=== PATIENT | male | born 1935 | race Caucasian/White ===

== ENCOUNTER 2016-04-01 00:51 | Observation (INO) ==
[2016-04-01 01:30] LABS: BASOPHILS # (AUTO) 0.1 K/uL (0-0.2); BASOPHILS % (AUTO) 1.1 % (0.0-3.0); EOSINOPHILS # (AUTO) 0.3 K/ul (0.0-0.7); EOSINOPHILS % (AUTO) 3.4 % (0.0-7.0); HEMATOCRIT 43.2 % (42.0-52.0); HEMOGLOBIN 14.7 g/dl (14.0-18.0); IMMATURE GRANULOCYTE % (AUTO) 0.6 % (0.0-5.0); LYMPHOCYTES # (AUTO) 1.4 K/uL (0.60-3.4); LYMPHOCYTES % (AUTO) 19.7 (10.0-50.0); MEAN CORPUSCULAR HEMOGLOBIN 29.8 pg (27.0-31.0); MEAN CORPUSCULAR VOLUME 87.4 fl (80.0-94.0); MONOCYTES # (AUTO) 0.8 K/uL (0.4-2.0); MONOCYTES % (AUTO) 10.3 (0-10); NEUTROPHILS # (AUTO) 4.7 K/ul (2.0-6.9); NEUTROPHILS % (AUTO) 64.9; PLATELET COUNT 245 10^3/uL (140-440); RED BLOOD COUNT 4.94 10^6/ul (4.70-6.10); WHITE BLOOD COUNT 7.27 K/ul (4.2-10.2)
[2016-04-01 01:35] LABS: ALBUMIN/GLOBULIN RATIO 1.29; ANION GAP 13.8; BILIRUBIN,TOTAL 0.49 mg/dL (0.00-1.20); BUN/CREATININE RATIO 19.44; CALCIUM 9.3 mg/dL (8.2-10.2); CREATININE 1.08 mg/dL (0.60-1.10); POTASSIUM 3.8 mmol/L (3.5-5.1); TOTAL PROTEIN 7.1 g/dL (5.8-8.1)
[2016-04-01 02:11] LABS: TROPONIN I 0.046 ng/ml (0.0000-0.4000)
[2016-04-01 02:58] LABS: ADD URINE MICROSCOPIC NO; BILIRUBIN,URINE Negative (NEGATIVE); KETONES,URINE Negative (NEGATIVE); LEUKOCYTE ESTERASE ,URINE Negative (NEGATIVE); NITRITE,URINE Negative (NEGATIVE); PROTEIN,URINE Negative (NEGATIVE); URINE, BLOOD Negative (NEGATIVE)
--- NOTE | 2016-04-01 03:55 | CT ---
Exam: CT angiography of the chest History: Chest pain and shortness of breath Technique: [address] of the chest utilizing CT angiography protocol. Multiplanar and th ree-dimensional reformations were performed. FINDINGS: Technically adequate for evaluation of pulmonary arteries and aorta. There are no pulmon luís artery filling defects. The lung windows show no significant pulmonary parenchymal abnormality. Atherosclerotic calcification of the aorta and coronary arteries. Mediastinal lymph nodes are abu ndant and sub pathologic by size. No acute findings of the chest wall soft tissues or bony thorax. No acute findings of the upper abdomen. Impression: 1. No evidence of pulmonary artery thrombus. No acute findings of the chest 2. Nonspecific mediastinal lymph node abundance
--- NOTE | 2016-04-01 05:27 | ED.PDOC ---
General ED Provider: Dr. TRAVIS KIDD-ER Chief Complaint: Non-specific Complaint Stated Complaint: i think i took the wrong meds and i had chest pain Time Seen by Physician: 00:55 Mode of Arrival: Walk-In Information Source: Patient, Family Exam Limitations: No limitations Primary Care Provider: ENRIQUE LIND Nursing and Triage Documentation Reviewed and Agree: Yes Miscellaneous Complaint Exam - Complex/Multi-System Complaint/Exam Onset/Duration: tonight Symptoms Are: Still present Initial Severity: Mild Current Severity: Mild Associated Signs and Symptoms: Reports: Weakness. Denies: Decreased responsiveness, Confusion, Agitation, Dizziness, Syncope, Headache, Short of air , Cough, Wheezing, Hemoptysis, Chest pain, Palpitations, Edema, Nausea, Vomiting , Diarrhea, Abdominal pain, Back pain, Dysuria, Hematemesis, Melena, Decreased oral intake, Fever, Diaphoresis, Immunocompromised, Anticoagulation Therapy, Recent medication changes, Indwelling medical clinic manager, Prior MRSA, Prior VRE, Recent trauma, Remote trauma Recent Echo/LV Function: No Respiratory Distress: None JVD Present: No Tachypnea Present: No Stridor Present: No Abdominal Findings: Present: Normal findings Glascow Coma Scale (see protocol): 15 Meningeal Signs Positive: No Focal Weakness: Present: None Focal Sensory Loss: Present: None Gait: Normal Gag Reflex Present: No Babinski Sign: Negative Right, Negative Left Skin Findings: Present: Normal findings Joint Swelling Present: No In-Dwelling Device Present: No Differential Diagnosis: Metabolic Abnormality, UTI Quality Indicator For Non-Traumatic Chest Pain/Syncope: EKG Performed Review of Systems - Review Of Systems Constitutional: Reports: No symptoms Eyes: Reports: No symptoms Ears, Nose, Mouth, Throat: Reports: No symptoms Respiratory: Reports: No symptoms Cardiac: Reports: Chest pain GI: Reports: No symptoms : Reports: No symptoms Musculoskeletal: Reports: No symptoms Skin: Reports: No symptoms Neurological: Reports: No symptoms Endocrine: Reports: No symptoms Hematologic/Lymphatic: Reports: No symptoms All Other Systems: Reviewed and Negative Past Medical History - Past Medical History Endocrine: Reports: Dyslipidemia Cardiovascular: Reports: CAD, Hypertension Respiratory: Reports: None Hematological: Reports: None Gastrointestinal: Reports: None Genitourinary: Reports: None Neuro/Psych: Reports: None Musculoskeletal: Reports: None Cancer: Reports: None - Surgical History General Surgical History: Reports: Unknown - Family History Family History: Reports: Unknown - Social History Smoking Status: Never smoker Hx Substance Use: No Alcohol Screening: None Lives: With family - Immunizations Tetanus Shot up to Date: Yes (unsure) Physical Exam - Physical Exam Appearance: Well-appearing, No pain distress, Well-nourished Eyes: MADDISON, EOMI, Conjunctiva clear ENT: Ears normal, Nose normal, Oropharynx normal Neck: Supple Respiratory: Airway patent, Breath sounds clear, Breath sounds equal, Respirations nonlabored Cardiovascular: RRR, Pulses normal, No rub, No murmur GI/: Soft Musculoskeletal: Normal strength Skin: Warm, Dry, Normal color Neurological: Sensation intact, Motor intact, Reflexes intact, Cranial nerves intact, Alert, Oriented Psychiatric: Affect appropriate Interpretation - Radiology Interpretation Radiology Interpretation By: Radiologist Radiology Results: Negative Exam Interpreted: CT Scan - EKG Interpretation Time of EKG #1: 02:00 Rate: Lukas Rhythm: Sinus Ectopy: None [place]: NL ST Segment: Normal Re-Evaluation - Re-Evaluation Time of Re-Evaluation: 05:40 Status: Unchanged Vital Signs Stable: Yes Pain Level: 0 Appearance: NAD Lungs: Clear Skin: Warm and Dry Neuro: Alert and Oriented X3 CV: RRR Critical Care Note - Critical Care Note Total Time (mins): 0 Course - Course Hematology/Chemistry: 04/01/16 01:14 04/01/16 01:14 Orders, Labs, Meds: Lab Review 04/01/16 04/01/16 04/01/16 01:10 01:14 02:58 WBC 7.27 RBC 4.94 Hgb 14.7 Hct 43.2 MCV 87.4 MCH 29.8 MCHC 34.0 RDW Coeff of [place] 13.7 Plt Count 245 Immature Gran % (Auto) 0.6 Neut % (Auto) 64.9 Lymph % (Auto) 19.7 [place] % (Auto) 10.3 H Eos % (Auto) 3.4 Baso % (Auto) 1.1 Immature Gran # (Auto) 0.0 Neut # 4.7 Lymph # 1.4 [place] # 0.8 Eos # 0.3 Baso # 0.1 D-Dimer 740.09 H Sodium 137 Potassium 3.8 Chloride 99 Carbon Dioxide 28 Anion Gap 13.8 BUN 21 H Creatinine 1.08 Estimated GFR (MDRD) 66.00 BUN/Creatinine Ratio 19.44 Glucose 171 H Calcium 9.3 Total Bilirubin 0.49 AST 24 ALT 18 Alkaline Phosphatase 103 Total Creatine Kinase 69 Troponin I 0.0460 Total Protein 7.1 Albumin 4.0 Globulin 3.1 Albumin/Globulin Ratio 1.29 Urine Color Yellow Urine Clarity Clear Urine pH 7.0 Ur Specific [place] 1.015 Urine Protein Negative Urine Glucose (UA) Negative Urine Ketones Negative Urine Blood Negative Urine Nitrite Negative Urine Bilirubin Negative Urine Urobilinogen 0.2 Ur Leukocyte Esterase Negative Orders Category Date Time Status EKG-(ED ONLY) Stat CARDIO 04/01/16 01:46 Completed NPO REMINDER: IMAGING ONCE CARE 04/01/16 02:31 Completed ACCUCHECK (ED) [ED ACCUCHECK ASSESSMENT] Q1HR EMERGENCY 04/01/16 01:48 Active Slab Tripper [ED FOREIGN BROADCAST SPECIALIST APPLIED] .ONCE EMERGENCY 04/01/16 01:48 Active CBC W/ AUTO DIFF Stat LAB 04/01/16 01:14 Completed CMP [COMPREHENSIVE METABOLIC PANEL] Stat LAB 04/01/16 01:14 Completed CREATINE KINASE Stat LAB 04/01/16 01:10 Completed D-DIMER Stat LAB 04/01/16 01:10 Completed TROPONIN I Stat LAB 04/01/16 01:10 Completed URINALYSIS C & S IF INDICATED Stat LAB 04/01/16 02:[address] CHEST PE PROTOCOL Stat RADS 04/01/16 02:30 Completed Vital Signs: Temp Pulse Resp BP Pulse Ox 04/01/16 04:22 62 18 127/82 96 04/01/16 00:52 96.8 F L 64 22 166/82 H 96 Departure - Departure Time of Disposition: 05:40 Disposition: PLACED OBSERVATION Discharge Problem: Chest pain Qualifiers: Chest pain type: unspecified Qualifier Code: (R07.9) Chest pain, unspecified Instructions: Chest Pain (ED) Condition: Good Pt referred to PMD for follow-up: Yes Allergies/Adverse Reactions: Allergies Penicillins Adverse Reaction (Verified 04/01/16 01:07) Hives Home Medications: Ambulatory Orders Aspirin [Lo-Dose Aspirin EC] 81 mg PO DAILY 04/01/16 Atorvastatin Calcium [Lipitor] 40 mg PO DAILY 04/01/16 Clonidine HCl 0.1 mg PO BID 04/01/16 Glipizide 5 mg PO BID 04/01/16 Losartan Potassium [Cozaar] 25 mg PO BID 04/01/16 Metoprolol Succinate 50 mg PO BID 04/01/16 Multivitamin/Iron/Folic Acid [Centrum Complete Multivit Tab] 1 tab PO DAILY 12/08 Nifedipine [Nifedical Xl] 60 mg PO DAILY 04/01/16 Trazodone HCl 50 mg PO BEDTIME 04/01/16 Disposition Discussed With: Patient, Family
[2016-04-01] MEDS ORDERED: GLIPIZIDE 5 MG PO SCH (09:00)
[2016-04-01] MEDS ORDERED: NON-FORMULARY MEDICATION (Clonidine Hcl [Clonidine Hcl] 0.1 MG) PO SCH (09:00)
[2016-04-01] MEDS ORDERED: NIFEDIPINE 60 MG PO SCH ×42 (09:00→21:00)
[2016-04-01 12:03] VITALS: BMI 29.0
[2016-04-01 12:15] LABS: CREATINE KINASE 53 U/L
[2016-04-01] MEDS ORDERED: GLIPIZIDE 2.5 MG PO SCH (13:00)
[2016-04-01] MEDS ORDERED: CLONIDINE HCL 0.15 MG PO SCH (13:05)
--- NOTE | 2016-04-01 14:35 | HP ---
DATE OF SERVICE: 04/01/16 CHIEF COMPLAINT/HISTORY OF PRESENT ILLNESS: This 80 year old WHITE/ M was hospitalized 04/01/16. The patient was admitted with chest pain. His on Friday. He states when he went to bed he had a pressure feeling in his chest and got up and took some baking soda. He states he sometimes feels this way when his sugar is low. He states he has had stents put in the past. He follows for his heart now with Dr. Ward in [place]. The patient is anxious to go home as he has family that is coming in. REVIEW OF SYSTEMS: CONSTITUTIONAL: No fever, no chills. HEENT: Normal. ENDOCRINE: No weight gain; no weight loss. CVS: No chest pain. No PND, no orthopnea. No shortness of breath. RESPIRATORY: No cough, no congestion. No hemoptysis. GI: No nausea, no vomiting. No abdominal pain. No melena. : No hematuria. No polyuria. MUSCULOSKELETAL: No joint swelling. PSYCHIATRIC: Not anxious. No depression. No suicidal thoughts. No homicidal thoughts. SKIN: Intact, no open lesions. PAST MEDICAL HISTORY: 1. Coronary artery disease status post stent placement times three. 2. Diabetes mellitus. 3. Hypertension 4. Dyslipidemia PAST SURGICAL HISTORY: 1. Knee surgery, right 2. Stent placement x3 PERSONAL HISTORY: recently. Nonsmoker. Occasional drinker. 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 MEDICATIONS: (Home) 1. Clonidine 1.5 mg p.o. b.i.d. 2. Nifedipine 60 mg p.o. bedtime 3. Glipizide 2.5 mg p.o. b.i.d. 4. Metoprolol 50 mg p.o. b.i.d. 5. Aspirin 81 mg p.o. daily 6. Multivitamin one tab p.o. daily 7. Atorvastatin (Lipitor) 40 mg p.o. daily 8. Losartan (Cozaar) 25 mg p.o. b.i.d. 9. Trazodone 25 mg p.o. bedtime 10. Hydrochlorothiazide 25 mg p.o. daily 11. Pantoprazole 40 mg p.o. b.i.d. ALLERGIES: PENICILLIN PHYSICAL EXAMINATION: V/S: Temperature 96.8, pulse 62, respirations 18, BP 127/82, pulse ox 96%. Weight 210; height 5'11". GENERAL: Sitting in chair in no distress. HEENT: Atraumatic, normocephalic. No scleral icterus. No pallor. NECK: Supple. No JVD, no bruit. No lymphadenopathy. No thyromegaly. HEART: S1, S2 normal. No murmur. No cyanosis or clubbing. No ascites. LUNGS: Clear to auscultation. No rales or rhonchi. ABDOMEN: Soft, nontender. Bowel sounds are active. No CVA tenderness. No rigidity or guarding. EXTREMITIES: No cyanosis, clubbing or pedal edema. MUSCULOSKELETAL: Normal joints, no swelling. NEUROLOGIC: The patient is awake, alert, oriented times three. SKIN: Intact; no open lesions. LYMPHATIC: No lymph nodes palpable. ASSESSMENT: 1. Chest pain, rule out ACS 2. Anxiety/grief 3. Diabetes mellitus 4. Coronary artery disease 5. Hypertension 6. Dyslipidemia PLAN: 1. Echocardiogram 2. A1C 3. TSH 4. Lipids 5. Accu-Cheks with coverage 6. Diabetic diet SCRIBED BY: NEMO TY, Specialty Plant Supervisor scribed while in presence of service performed by Dr. YUN ALDRICH on 04/01/16 ([id number]) [facility] CENTERGurinder
[2016-04-01] MEDS ORDERED: JANUVIA PO SCH (15:30)
[2016-04-01] MEDS: NON-FORMULARY MEDICATION (Atorvastatin Calcium [Lipitor] 40 MG) PO SCH ×22 (15:38)
[2016-04-01] MEDS: IRON PO SCH (15:39)
[2016-04-01] MEDS: [UNRECOGNIZED DRUG - OTHER] PO SCH (15:39)
[2016-04-01] MEDS: FOLIC ACID T PO SCH (15:39)
[2016-04-01] MEDS: MULTIVITAMIN PO SCH (15:39)
[2016-04-01] MEDS: ASPIRIN 81 MG PO SCH (15:39)
[2016-04-01] MEDS: LOSARTAN POTASSIUM 25 MG PO SCH ×44 (15:40→21:55)
[2016-04-01] MEDS: METOPROLOL SUCCINATE 50 MG PO SCH ×2 (15:40→21:55)
[2016-04-01] MEDS: NON-FORMULARY MEDICATION (Hydrochlorothiazide [Hydrochlorothiazide] 25 MG) PO SCH ×22 (16:04)
[2016-04-01] MEDS: JANUVIA PO SCH (17:03)
[2016-04-01 20:17] LABS: TROPONIN I 0.013 ng/ml (0.0000-0.4000)
[2016-04-01] MEDS ORDERED: TRAZODONE HCL 25 MG PO SCH (21:00)
[2016-04-01] MEDS ORDERED: NON-FORMULARY MEDICATION (Trazodone Hcl [Trazodone Hcl] 50 MG) PO SCH ×22 (21:00)
[2016-04-01] MEDS: NON-FORMULARY MEDICATION (Pantoprazole Sodium [Protonix] 40 MG) PO SCH ×22 (21:55)
[2016-04-01] MEDS: NON-FORMULARY MEDICATION (Clonidine Hcl [Clonidine Hcl] 0.1 MG) PO SCH (21:55)
[2016-04-02] MEDS ORDERED: DOBUTAMINE 250 ML IV ONE (06:59)
[2016-04-02] MEDS ORDERED: ATROPINE SULFATE PFS ONE (06:59)
--- NOTE | 2016-04-02 09:47 | CONS ---
DATE OF CONSULTATION: 04/01/16 REASON FOR CONSULTATION: Chest pain HISTORY OF PRESENT ILLNESS: The patient is an 80 year old white male seen on consultation after being admitted through the emergency with non-specific complaints. The patient had taken the wrong medications and complained of chest pain which was vague. The patient's just and never managed his medications so he is more or less confused with the medication he says. REVIEW OF SYSTEMS: CONSTITUTIONAL: No night sweats. No fatigue, malaise, lethargy. No fever or chills. HEENT: Eyes: No visual changes. No eye pain. No eye discharge. ENT: No runny nose. No epistaxis. No sinus pain. No sore throat. No odynophagia. No ear pain. No congestion. RESPIRATORY: No cough, no congestion. No hemoptysis. CARDIOVASCULAR: No angina symptoms. No CHF symptoms. No atypical chest pain for CAD. No palpitations. No shortness of breath. GASTROINTESTINAL: No abdominal pain. No nausea or vomiting. No diarrhea or constipation. No hematemesis. No hematochezia. GENITOURINARY: No urgency. No frequency. No dysuria. No hematuria. No obstructive symptoms. No discharge. No pain. No significant abnormal bleeding. MUSCULOSKELETAL: No musculoskeletal pain. No joint swelling. NEUROLOGICAL: No headache. No neck pain. No syncope. No seizures. No dizziness. PSYCHIATRIC: Not anxious. No depression. No suicidal thoughts. No homicidal thoughts. SKIN: No rash. No lesions. No wounds. ENDOCRINE: No unexplained weight loss. No weight gain. HEMATOLOGIC/LYMPHATIC: No anemia. No purpura. No petechiae. No prolonged or excessive bleeding. No palpable lymph nodes. NOTE: The patient is being followed by Warehouse Logistics Coordinator in [place], Dr. Ward. He had a check up nearly a month ago. The patient has history of coronary artery disease with stent. He had three stents put in by Dr. Ward according to him 5 years ago. After that he never that he never had another angiogram. MEDICATIONS: Aspirin 81mg PO daily Atorvastatin 40mg PO daily Clonidine 0.1mg PO daily Glipizide 5mg twice a day Losartan 25mg twice a day Metoprolol 50mg twice a day Nifedipine 60mg PO daily Trazodone 50mg at bedtime. ALLERGIES: Penicillin PAST MEDICAL HISTORY/PAST SURGICAL HISTORY: History of coronary artery disease Dyslipidemia Hypertension SOCIAL/PERSONAL/FAMILY HISTORY: The patient is . Non-smoker. No alcohol abuse and does all activity of daily living. PHYSICAL EXAMINATION: GENERAL: The patient is oriented to time, place and person. VITAL SIGNS: Temperature 96.8, pulse 62, respiratory 18, blood pressure 127/82 and pulse ox 96%. HEENT: Head normocephalic, atraumatic. Eyes: Extraocular muscles are intact. Pupils are equal, round and reactive to light and accommodation. Ears: No lesions. Nose appeared normal. Throat: No exudate or erythema. NECK: Supple. No JVP, no carotid bruit. No lymphadenopathy or thyromegaly. LUNGS: Decreased breath sounds but clear to auscultation. Percussion note normal. Chest symmetrical. HEART: S1, S2, no S3. No murmurs. No cyanosis or clubbing. No ascites. Pulses: Dorsalis pedis and posterior tibial pulses +1 to +2 both sides. Increased ap diameter of the chest. ABDOMEN: Soft. Nontender. Bowel sounds active. No CVA tenderness. No mass felt. EXTREMITIES: No edema. Full range of motion of all extremities, equal. NEUROLOGIC: No focal deficit. Cranial nerves II through XII are grossly intact. No headache, no double vision or headache. SKIN: Not dry. Intact. Turgor - normal. LYMPHATIC: No palpable lymph nodes/no lymphedema. MUSCULOSKELETAL: Normal joints with no swelling. Muscle tone is normal. LABS: Will do echocardiogram with was done, which showed hypokinetic septal motion with 38% oxygen, 88% LV ejection fraction with dilated left ventricle and enlarged left atrial cavity. Will do stress echo sestamibi, Dobutamine stress echo tomorrow. So far the patient's cardiac markers are negative. EKG sinus rhythm, no acute changes and CK normal and Troponin negative. ASSESSMENT: 1. Chest pain, seems to be unspecified, non cardiac. Doubt there is any acute marker even or even angina but has multiple risk factors with his history of coronary artery disease. 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 Coronary artery disease, status post stent placement. 4. Diabetes Mellitus 5. Hypertension 6. Dyslipidemia RECOMMENDATION: 1. Echo done 2. Continue Telemetry 3. Continue to monitor the patient's cardiac markers 4. Will be Dobutamine stress echo in the morning. CONDITION: Stable The patient also has a written consult note by . MAR
[2016-04-02] MEDS: LOSARTAN POTASSIUM 25 MG PO SCH ×22 (10:22)
[2016-04-02] MEDS: ASPIRIN 81 MG PO SCH (10:22)
[2016-04-02] MEDS: NON-FORMULARY MEDICATION (Clonidine Hcl [Clonidine Hcl] 0.1 MG) PO SCH (10:22)
[2016-04-02] MEDS: METOPROLOL SUCCINATE 50 MG PO SCH (10:22)
[2016-04-02] MEDS: JANUVIA PO SCH (10:22)
[2016-04-02] MEDS: NON-FORMULARY MEDICATION (Hydrochlorothiazide [Hydrochlorothiazide] 25 MG) PO SCH ×22 (10:22)
[2016-04-02] MEDS: NON-FORMULARY MEDICATION (Atorvastatin Calcium [Lipitor] 40 MG) PO SCH ×22 (10:22)
[2016-04-02] MEDS: FOLIC ACID T PO SCH (10:23)
[2016-04-02] MEDS: NON-FORMULARY MEDICATION (Pantoprazole Sodium [Protonix] 40 MG) PO SCH ×22 (10:23)
[2016-04-02] MEDS: IRON PO SCH (10:23)
[2016-04-02] MEDS: MULTIVITAMIN PO SCH (10:23)
[2016-04-02] MEDS: [UNRECOGNIZED DRUG - OTHER] PO SCH (10:23)
[2016-04-02 13:45] VITALS: BP 105/61; TEMP 97.9
--- NOTE | 2016-04-03 12:47 | ECHOSTRESS ---
Date of Exam: 04/02/16 Ordering Physician: HOSPITALIST--YUN ALDRICH Reason for Echo: CHEST PAIN, PRESSURE, CABG, DOBUTAMINE STRESS--NO ISCHEMIA M-Mode Normal Adult Results LV Dimensions Normal Adult Results AoV Opening excursions >1.6 LVEDD-base- 3.5-5.8 Ao root dimensions 2.0-3.7 LVESD-base- 3.1-4.6 L. Atrium dimensions 1.9-3.8 Post. Wall thickness 0.8-1.1 IV septum (thickness) 0.7-1.2 Post. Wall excursion 0.72-1.3 Septal motion Systolic motion R. Ventricular cavity 1.5-2.0 LVEF 60% Paradoxical septal wall motion 2-D: HYPOKINETIC SEPTUM AT REST AND WITH DOBUTAMINE INFUSION M-MODE: MV: AV: TV: PV: CHAMBER SIZE: WALL MOTION: HYPOKINETIC SEPTUM AT REST AND WITH DOBUTAMINE INFUSION PERICARDIUM: INTERPRETATION: 1. HYPOKINETIC SEPTUM AT REST AND WITH DOBUTAMINE INFUSION MTDD
--- NOTE | 2016-04-03 12:57 | DOBSTECHO ---
Ordering Physician: HOSPITALIST-YUN ALDRICH Date of Test: 04/02/16 Reason for Examination: CHEST PAIN, PRESSURE, CABG Current Medications: ASA, COZAAR, METOPROLOL, LIPITOR, TRAZODONE, CLONIDINE, HCTZ, PROTONIX, JANUVIA Height: 73" Weight: 208 LBS Target Heart Rate: 118/139 ST Segment Stage Time HR/BPM BP MMHG Rhythm +/- Up Down Comments/Symptoms Control Sitting 59 148/72 SR X NONE Dobutamine 250mg/D5W 5cmg/KG/mn 10cmg/KG/mn 3" 64 168/78 SR X NONE 15cmg/KG/mn 2" 70 SR X NONE 20cmg/KG/mn 2" 76 160/80 SR X NONE 25cmg/KG/mn 2" 82 SR X NONE 30cmg/KG/mn 2" 83 156/72 SR X NONE 35cmg/KG/mn :35 95 SR X NONE 40cmg/KG/mn Time: 3" HR/BPM B/P-MMHG Time: 5" HR/BPM BP-MMHG Time: 6" HR B/P Recovery 80 152/70 Recovery 68 138/64 Recovery 63 Total Time: 11:35 Maximum Heart Rate Reached: 95 Interpretation: 1. NO EVIDENCE OF ISCHEMIA BY ST-T WAVE CHANGES AT RESTING RATE 59/MINUTE TO 95/ MINUTE WITH DOBUTAMINE INFUSION 2. HYPOKINETIC SEPTAL WALL AT REST AND WITH DOBUTAMINE INFUSION 3. NO CHEST PAIN OR DISCOMFORT MTDD
--- NOTE | 2016-04-03 13:06 | ECHO2D ---
Date of Exam: 04/01/16 Ordering Physician: HOSPITALIST--YUN ALDRICH Reason for Echo: CHEST PAIN, PRESSURE, CAD, PR M-Mode Normal Adult Results LV Dimensions Normal Adult Results AoV Opening excursions >1.6 >1.6 LVEDD-base- 3.5-5.8 6.1 Ao root dimensions 2.0-3.7 3.9 LVESD-base- 3.1-4.6 L. Atrium dimensions 1.9-3.8 5.0 Post. Wall thickness 0.8-1.1 1.2 IV septum (thickness) 0.7-1.2 1.3 Post. Wall excursion 0.72-1.3 NORMAL Septal motion 0.4 Systolic motion R. Ventricular cavity 1.5-2.0 NORMAL LVEF 60% 35% Paradoxical septal wall motion NORMAL 2-D : HYPOKINETIC SEPTAL WALL, NORMAL VALVES, NO EFFUSION, NO THROMBUS, ENLARGED LEFT ATRIAL AND LEFT VENTRICLE CAVITIES M-MODE: MV: NORMAL AV: NORMAL TV: NORMAL PV: CHAMBER SIZE: ENLARGED LEFT ATRIAL AND LEFT VENTRICLE CAVITIES WALL MOTION: HYPOKINETIC SEPTAL WALL PERICARDIUM: NORMAL INTERPRETATION: 1. HYPOKINETIC SEPTAL WALL--LEFT VENTRICULAR EJECTION FRACTION 35% 2. LEFT VENTRICULAR HYPERTROPHY WITH ENLARGED LEFT ATRIAL CAVITY 3. ENLARGED LEFT VENTRICLE CAVITY MTDD
--- NOTE | 2016-04-04 10:38 | CONS ---
DATE OF SERVICE: 04/02/16 CONSULT FOLLOWUP SUBJECTIVE: 80-year-old white male hospitalized yesterday with vague chest pain. The patient 's cardiac markers are all negative. EKG - sinus rhythm with no acute changes. Old anteroseptal wall [place] noted. Telemetry does not show any significant arrhythmias with ST wave change. REVIEW OF SYSTEMS: CONSTITUTIONAL: No night sweats. No fatigue, malaise, lethargy. No fever or chills. HEENT: Eyes: No visual changes. No eye pain. No eye discharge. ENT: No runny nose. No epistaxis. No sinus pain. No sore throat. No odynophagia. No ear pain. No congestion. RESPIRATORY: No cough, no congestion. No hemoptysis. CARDIOVASCULAR: No angina symptoms. No CHF symptoms. No atypical chest pain for CAD. No palpitations. No shortness of breath. GASTROINTESTINAL: No abdominal pain. No nausea or vomiting. No diarrhea or constipation. No hematemesis. No hematochezia. GENITOURINARY: No urgency. No frequency. No dysuria. No hematuria. No obstructive symptoms. No discharge. No pain. No significant abnormal bleeding. MUSCULOSKELETAL: No musculoskeletal pain. No joint swelling. NEUROLOGICAL: No headache. No neck pain. No syncope. No seizures. No dizziness. PSYCHIATRIC: Not anxious. No depression. No suicidal thoughts. No homicidal thoughts. SKIN: No rash. No lesions. No wounds. ENDOCRINE: No unexplained weight loss. No weight gain. HEMATOLOGIC/LYMPHATIC: No anemia. No purpura. No petechiae. No prolonged or excessive bleeding. No palpable lymph nodes. PHYSICAL EXAMINATION: GENERAL: The patient is oriented to time, place and person. VITAL SIGNS: Temperature 97.1, pulse 60, respiratory rate 18, BP 117/66, pulse ox 98%. HEENT: Head normocephalic, atraumatic. Eyes: Extraocular muscles are intact. Pupils are equal, round and reactive to light and accommodation. Ears: No lesions. Nose appeared normal. Throat: No exudate or erythema. NECK: Supple. No JVD, no carotid bruit. No lymphadenopathy or thyromegaly. LUNGS: Decreased breath sounds. Clear to auscultation. Percussion note normal. Chest symmetrical. HEART: S1, S2, no S3. No murmurs. No cyanosis or clubbing. No ascites. Pulses: Dorsalis pedis and posterior tibial pulses +1 to +2 both sides. ABDOMEN: Soft. Nontender. Bowel sounds active. No CVA tenderness. No mass felt. EXTREMITIES: No edema. Full range of motion of all extremities, equal. NEUROLOGIC: No focal deficit. Cranial nerves II through XII are grossly intact. No headache, no double vision or headache. SKIN: Not dry. Intact. Turgor - normal. LYMPHATIC: No palpable lymph nodes/no lymphedema. MUSCULOSKELETAL: Normal joints with no swelling. Muscle tone is normal. LABS: Hemoglobin 14.7, hematocrit 43, WBC 7,200, normal differential. Creatinine 1, BUN 21, potassium 3.8, glucose 171. ASSESSMENT: 1. VAGUE CHEST PAIN SEEMS TO BE NONCARDIAC SUPPORTED BY DOBUTAMINE STRESS ECHO DONE SHOWED THAT HEART RATE FROM 59 TO 95. THE PATIENT DID NOT HAVE ANY CHEST PAIN OR ST-T WAVE CHANGE. THE PATIENT HAS HYPOKINETIC SEPTAL WALL WITH LV EJECTION FRACTION OF 35% BY ECHO WITH DILATED LV CAVITY AND LA CAVITY. VALVES ARE NORMAL. OF NOTE: The patient's condition is stable. The patient is being followed by Dr. Ward. The patient is very vague about when stents were placed. He is grieving as his a few days ago. CONDITION: Stable. [facility]
--- NOTE | 2016-04-05 11:54 | CONS ---
DATE OF CONSULTATION: 04/01/16 REASON FOR CONSULTATION/HISTORY OF PRESENT ILLNESS: Chest pain. Spouse just recently. She always administered the patient's daily medications. He feels he may have taken the wrong medication or doses. He complains of having "chest pressure" across his chest. Denies any radiation. No diaphoresis, No shortness of breath and no nausea and no vomiting. He was at rest when the discomfort occurred. He took baking soda thinking this would help. It did not. He said he felt weak and "foggy headed." like he was having a "low blood sugar" episode. Blood sugars in ER were 171. REVIEW OF SYSTEMS: CONSTITUTIONAL: No night sweats. Fatigue. No fever or chills. HEENT: Eyes: No visual changes. No eye pain. No eye discharge. ENT: No runny nose. No epistaxis. No sinus pain. No sore throat. No odynophagia. No ear pain. No congestion. RESPIRATORY: No cough, no congestion. No hemoptysis. CARDIOVASCULAR: Angina symptoms see above. No CHF symptoms. No atypical chest pain for CAD. No palpitations. No shortness of breath. No PND. No orthopnea. GASTROINTESTINAL: No abdominal pain. No nausea or vomiting. No diarrhea or constipation. No hematemesis. No hematochezia. GENITOURINARY: No urgency. No frequency. No dysuria. No hematuria. No obstructive symptoms. No discharge. No pain. No significant abnormal bleeding. MUSCULOSKELETAL: No musculoskeletal pain. No joint swelling. NEUROLOGICAL: No headache. No neck pain. No syncope. No seizures. No dizziness. PSYCHIATRIC: Not anxious. Depression-situational, spouse just recently. No suicidal thoughts. No homicidal thoughts. SKIN: No rash. No lesions. No wounds. Warm. ENDOCRINE: No unexplained weight loss. No weight gain. HEMATOLOGIC/LYMPHATIC: No anemia. No purpura. No petechiae. No prolonged or excessive bleeding. No palpable lymph nodes. MEDICATIONS: Trazodone Clonidine Nifedipine Glipizide Metoprolol Aspirin Multivitamin Lipitor Cozaar ALLERGIES: Ciprofloxacin Penicillins Quinapril Sulfa PAST MEDICAL HISTORY: Chronic back pain Diabetes Mellitus, type 2 Diabetic Peripheral neuropathy Osteoarthritis Erectile dysfunction GERD Coronary artery disease and history of DC Dyslipidemia Hypertension Gout PAST SURGICAL HISTORY: Cardiac Cath and stent, Dr. Ward Left Anterior Descending and Circumflex Pleural biopsy benign SOCIAL/PERSONAL/FAMILY HISTORY: Smoking: No, smokeless and cigars by history but none now. Alcohol: Yes Occasionally whisky and beer. . PHYSICAL EXAMINATION: GENERAL: The patient is oriented times 3. VITAL SIGNS: Pulse 67, blood pressure 127/80, temperature 97.4 and pulse ox 99% on room air. HEENT: Head normocephalic, atraumatic. Eyes: Extraocular muscles are intact. Pupils are equal, round and reactive to light and accommodation. Ears: No lesions. Nose appeared normal. Throat: No exudate or erythema. NECK: Supple. No JVP, no carotid bruit. No lymphadenopathy or thyromegaly. LUNGS: Clear to auscultation. Percussion note normal. Chest symmetrical. HEART: S1, S2, no S3. No murmurs. No cyanosis or clubbing. No ascites. Pulses: Dorsalis pedis and posterior tibial pulses +1. ABDOMEN: Soft. Nontender. Bowel sounds active. No CVA tenderness. No mass felt. EXTREMITIES: No edema. Full range of motion of all extremities, equal. NEUROLOGIC: No focal deficit. Cranial nerves II through XII are grossly intact. No headache, no double vision or headache. SKIN: Not dry. Intact. Turgor - normal. LYMPHATIC: No palpable lymph nodes/no lymphedema. MUSCULOSKELETAL: Normal joints with no swelling. Muscle tone is normal. LABS: Cardiac markers X2 within normal limits. D-Dimer 740.09, Triglycerides 50, cholesterol 106, LDL 61, VLDL 10 and HDL 35. WBC 7.27, Hgb 14.7, hct 43.2, plt count 245, Sodium 137, potassium 3.8, Chloride 99, Bicarb 28, BUN 21, creatinine 1.[address] chest 04/01/16 no evidence of PE. No acute findings. ASSESSMENT: 1. 01-23-[address] Ward 2. Left vent diastolic dysfunction 3. LVEF 25-30% 4. Mild to moderated left and right atrial enlargement 5. Right ventricular enlargement 6. Mild to Moderate Mitral and Tricuspid Regurgitation. PLAN: 1. 2DM Mode echo 2. Review Medications 3. Telemetry 4. Stress echo 5. Cardiovascular risk reduction risk Thanks for referral. Will follow. [facility]
--- NOTE | 2016-05-10 13:07 | DS ---
DATE OF SERVICE: 04/01/16 FINAL DIAGNOSIS: 1. CHEST PAIN, NONCARDIAC. DOBUTAMINE STRESS ECHO NEGATIVE WITH A HYPOKINETIC SEPTAL WALL ON THE ECHO. EJECTION FRACTION IS 35 WITH A LEFT VENTRICULAR HYPERTROPHY WITH HISTORY OF CORONARY ARTERY DISEASE. CORONARY ARTERY STENTING DONE BY DR. FENTON. 2. HYPERTENSION 3. DYSLIPIDEMIA 4. GERD 5. ERECTILE DYSFUNCTION 6. OSTEOARTHRITIS 7. DIABETIC PERIPHERAL NEUROPATHY 8. DIABETES 9. CHRONIC BACK PAIN 10. GOUT PLAN: 1. Discharge the patient home. 2. Lifestyle modification. 3. Resume home medications of Aspirin, Lipitor, Clonidine, Hydrochlorothiazide , Cozaar, Centrum Silver, Nifedical, Protonix, Januvia and Trazodone. 4. New medication: Januvia 50 mg once a day. 5. Diet: Cardiac and diabetic diet. DISEASE SPECIFIC EDUCATION: Chest pain, coronary artery disease, diabetes and hypoglycemia and medication side effects were discussed on multiple events. HOSPITAL COURSE: Ganga Akbar, who is an 80 year old male, who came to the emergency room for chest tightness, shortness of breath. With given history of coronary artery disease, diabetes, the patient was admitted for the observation to rule out acute coronary syndrome. Dr. Robledo consultation was obtained he was courteous enough to come and see the patient and immediately scheduled for the Dobutamine Stress Echo and Echo cardiogram. The Dobutamine stress echo did not show any acute findings. Echocardiogram did show his ejection fraction of 45% with left ventricular hypertrophy. As the patient's test were negative and he was asymptomatic during the hospital stay and did not have any more chest pains that at that time he was discharged to home and explained about all of the test results in detail and chest pain is noncardiac at the given time. Time spent on the patient is more than 45 minutes today. MAR
== END 2016-04-02 14:48 | disposition home or self-care (01) ==
LOC: ED 00:51 → MEDSURG A 05:44
PROVIDERS: ADMIT Emergency Medicine; ATTEND Emergency Medicine
DX: R07.89 Other chest pain (principal); I51.7 Cardiomegaly; R94.39 Abnormal result of other cardiovascular function study; F32.9 Major depressive disorder, single episode, unspecified; I25.10 Atherosclerotic heart disease of native coronary artery without angina pectoris; I10 Essential (primary) hypertension; E11.42 Type 2 diabetes mellitus with diabetic polyneuropathy; I25.2 Old myocardial infarction; E78.5 Hyperlipidemia, unspecified; K21.9 Gastro-esophageal reflux disease without esophagitis; G89.29 Other chronic pain; M54.9 Dorsalgia, unspecified; Z95.5 Presence of coronary angioplasty implant and graft; Z63.4 Disappearance and death of family member
CPT/HCPCS: 36415; 80053; 80061; 81001; 82550; 82962; 83036; 84439; 84443; 84484; 85025; 85379; 93005; 93010; 99217; 99220; 99284

== ENCOUNTER 2017-09-22 12:29 | Outpatient (CLI) ==
--- NOTE | 2017-09-22 13:37 | US ---
EXAM: ULTRASOUND LOWER EXTREMITY VENOUS DOPPLER EXAM HISTORY: Leg pain. FINDINGS: Bilateral lower extremity venous Doppler exam. Real time allen-scale, Doppler spectral anal ysis and color-flow Doppler imaging performed. The veins targeted for evaluation include the common femoral, greater saphenous, profundus, femoral, popliteal, peroneal, anterior tibial and posterior ti bial. The evaluated veins demonstrated normal spontaneous flow and compression without evidence of thrombosis. IMPRESSION: No venous thrombosis identified within the areas evaluated.
== END 2017-09-22 12:30 | disposition home or self-care (01) ==
LOC: RAD 12:29
PROVIDERS: ATTEND Internal Medicine
DX: M79.605 Pain in left leg (principal); M79.604 Pain in right leg; M79.89 Other specified soft tissue disorders

== ENCOUNTER 2018-07-13 10:59 | Emergency (ER) ==
[2018-07-13 11:02] VITALS: BP 168/91; TEMP 97.7; BMI 27.8
[2018-07-13] MEDS ORDERED: LIDOCAINE HCL 1% SDV SUBCUT STA (11:19)
--- NOTE | 2018-07-13 11:34 | ED.PDOC ---
General ED Provider: Dr. CLINTON RUSSELL Chief Complaint: Finger Pain/Injury Stated Complaint: the pulp and nail bed appears swollen and infected denied any history of injury which could involve a retained F/B Time Seen by Physician: 11:00 (PRESENT JEANINE. SEE PHOTOS) Mode of Arrival: Walk-In Information Source: Patient Exam Limitations: No limitations Primary Care Provider: SONNY TURCIOS Nursing and Triage Documentation Reviewed and Agree: Yes Does patient meet sepsis criteria?: No System Inflammatory Response Syndrome: Not Applicable Sepsis Protocol: For patient's 13 years and over: Temp is 96.8 and below OR 101 and greater Pulse >90 BPM Resp >20/minute Acutely Altered Mental Status Are patient's symptoms suggestive of a new infection, such as: -Pneumonia -Skin, Soft Tissue -Endocarditis -UTI -Bone, Joint Infection -Implantable Device -Acute Abdominal Infection -Wound Infection -Meningitis -Blood Stream Catheter Infection -Unknown Musculoskeletal Complaint Exam - Hand/Wrist Complaint/Exam Location of Pain: Reports: Right, Digit #3 Mechanism of Injury: Reports: No known trauma Onset/Duration: 5 DAYS Symptoms Are: Still present Onset of Pain: Reports: Days Initial Severity: Mild Current Severity: Mild Location: Reports: Discrete (SEE PHOTOS ) Character: Reports: Aching Alleviating: Reports: None Aggravating: Reports: None Associated Signs and Symptoms: Reports: Swelling, Redness (SEE PHOTOS IN ALL KINDS OF RANGE OF MOTION) Dominant Hand: Right Related Surgical History: Reports: None Hand/Wrist Findings: Present: Swelling (3RD FINGER ), Erythema Differential Diagnoses: Felon Review of Systems - Review Of Systems Constitutional: Reports: No symptoms Eyes: Reports: No symptoms Ears, Nose, Mouth, Throat: Reports: No symptoms Respiratory: Reports: No symptoms Cardiac: Reports: No symptoms GI: Reports: No symptoms : Reports: No symptoms Musculoskeletal: Reports: Other (SEE PHOTOS) Skin: Reports: Other (SEE PHOTOS) Neurological: Reports: No symptoms Endocrine: Reports: No symptoms Hematologic/Lymphatic: Reports: No symptoms All Other Systems: Reviewed and Negative Past Medical History - Past Medical History Previously Healthy: Yes Endocrine: Reports: Dyslipidemia Cardiovascular: Reports: CAD, Hypertension Respiratory: Reports: None Hematological: Reports: None Gastrointestinal: Reports: None Genitourinary: Reports: None Neuro/Psych: Reports: None Musculoskeletal: Reports: None Cancer: Reports: None - Surgical History General Surgical History: Reports: Unknown - Family History Family History: Reports: Unknown - Social History Smoking Status: Never smoker Hx Substance Use: No Alcohol Screening: None Physical Exam - Physical Exam Appearance: Well-appearing, No pain distress, Well-nourished Eyes: MADDISON, EOMI, Conjunctiva clear ENT: Ears normal, Nose normal, Oropharynx normal Respiratory: Airway patent, Breath sounds clear, Breath sounds equal, Respirations nonlabored Cardiovascular: RRR, Pulses normal, No rub, No murmur GI/: Soft, Nontender, No masses, Bowel sounds normal, No Organomegaly Musculoskeletal: Normal strength (THE 3RD FINGER IS DOCUMENTED ON THE PHOTOS) Skin: Warm, Dry, Normal color Neurological: Sensation intact, Motor intact, Reflexes intact, Cranial nerves intact, Alert, Oriented Psychiatric: Affect appropriate, Mood appropriate Procedures - Incision and Drainage Site: RIGHT 3RD FINGER Instrument Used: 10 Blade I & D Procedure: Yes: Hibiclens Prep Lidocaine Used: Yes (2ML PLAIN) Type of Drainage: Present: Pus Irrigated: Yes Progress: AN INCISION OF 4MM WAS MADE ALONE THE LENGHT OF THE EDGE OF THE NAIL OF THE FINGER INVOLVED . PUSS WAS EVACUATED Critical Care Note - Critical Care Note Total Time (mins): 0 Course - Course Orders, Labs, Meds: Orders Category Date Time Status CULTURE WOUND [WOUND CULTURE] Stat LAB 07/13/18 11:19 Uncollected Lidocaine HCl/Pf [Lidocaine HCl 1% Sdv] MEDS 07/13/18 11:19 Stat 5 ml SUBCUT ONCE STA Medications Discontinued Medications Generic Name Dose Route Start Last Admin Trade Name Deric PRN Reason Stop Dose Admin Lidocaine HCl 5 ml 07/13/18 11:19 Lidocaine Hcl 1% Sdv SUBCUT 07/13/18 11:20 ONCE STA Vital Signs: Temp Pulse Resp BP Pulse Ox 07/13/18 11:00 97.7 F 77 20 168/91 H 96 Departure - Departure Time of Disposition: 11:38 Disposition: HOME SELF-CARE Discharge Problem: [facility] [place] Instructions: Paronychia (ED) Condition: Good Pt referred to PMD for follow-up: Yes IPMP verified?: No Additional Instructions: Please call your Family Physician as soon as possible to schedule a follow-up appointment. Allergies/Adverse Reactions: Allergies ciprofloxacin [From Cipro] Adverse Reaction (Verified 07/13/18 11:02) Penicillins Adverse Reaction (Verified 07/13/18 11:02) Hives Home Medications: Ambulatory Orders Aspirin [Lo-Dose Aspirin EC] 81 mg PO DAILY 04/01/16 Atorvastatin Calcium [Lipitor] 20 mg PO DAILY 04/01/16 Clonidine HCl 1.5 tab PO BID 04/01/16 Hydrochlorothiazide 25 mg PO DAILY 04/01/16 Metoprolol Succinate 50 mg PO BID 04/01/16 Multivitamin/Iron/Folic Acid [Centrum Complete Multivit Tab] 1 tab PO DAILY 12/08 Nifedipine [Nifedical Xl] 60 mg PO BEDTIME 04/01/16 Pantoprazole Sodium [Protonix] 40 mg PO BID 04/01/16 Trazodone HCl 25 mg PO BEDTIME 04/01/16
== END 2018-07-13 11:55 | disposition home or self-care (01) ==
LOC: ED 10:59
DX: L03.011 Cellulitis of right finger (principal)
CPT/HCPCS: 87070; 87186; 99283